=== PATIENT | male | born 1990 | race African-American/Black ===

== ENCOUNTER → 2021-05-30 08:23 | Outpatient (BNVA) | payer MEDICARE, MEDICAID, SELFPAY | PROVIDERS: PCP Nurse Practitioner Family; Visit Provider Urology | DX: N41.9 Inflammatory disease of prostate, unspecified (principal); R10.31 Right lower quadrant pain; R10.32 Left lower quadrant pain | CPT/HCPCS: 99202 ==

== ENCOUNTER → 2021-09-10 08:32 | Outpatient (BNVA) | payer MEDICARE, MEDICAID, SELFPAY | PROVIDERS: PCP Nurse Practitioner Family; Visit Provider Urology | DX: N41.9 Inflammatory disease of prostate, unspecified (principal); M62.89 Other specified disorders of muscle | CPT/HCPCS: 99212 ==

== ENCOUNTER → 2022-03-17 15:02 | Outpatient (BNVA) | payer MEDICARE, MEDICAID, SELFPAY | PROVIDERS: PCP Nurse Practitioner Family; Visit Provider Urology | DX: N41.9 Inflammatory disease of prostate, unspecified (principal); M62.89 Other specified disorders of muscle | CPT/HCPCS: Q3014 ==

== ENCOUNTER 2022-06-25 11:00 | Outpatient (RCR) | payer MEDICARE, MEDICAID, SELFPAY ==
--- NOTE | 2022-04-23 13:43 | MHC.PT.EP ---
[facility] [place] [facility] [place] [facility] [place] [facility] [address] Roxana Cosme [address] [phone] F: [phone] F: [phone] F: [phone] F: [phone] Physical Therapy Plan of Care Date of Evaluation: Date of Surgery: NA Diagnosis: Inflammatory disease of prostate Assessment: Brodie is a 31 year old male who is referred to PT for inflammatory disease of prostate . He reports of having symptoms pressure and pain in his penis, testicles, groin, urinary urgency, frequency and pain after BM. He started noticing his symptoms about 6-7 years back after a period of being hyper-sexual due to mental health issues. He denies having any pain with erection and ejaculation. In addition he also reports of having slow urine stream. Internal pelvic exam not done today as pt was not prepared for it. On PT examination he presented with intact lumbar ROM and B LE ROM however demonstrated decreased symptoms with lumbar flexion. He would benefit from skilled PT to address the aforementioned impairments and improve tolerance to functional activities. Frequency and Duration: The patient will be seen 1/week for 7 weeks. Short Term Goals: 1. Internal pelvic exam will be done in 2 weeks. 2. Pt will be able to state at least 3 urge suppression techniques 3. Pt will drop his night urination from 3 to 1 and day from 15 to 10 in 4 weeks. Transitional Living Specialist Goals: 1. Pt will present with 50% decrease in pain groin, penis and testicles which will enable him to sit for 30 minutes without pain in 5 weeks. 2. Pt will be independent with [facility] for symptom management and maintenance following d/c in 7 weeks. Treatment Plan: Modalities to reduce pain, spasms and effusion. Manual therapy to restore motion and function. Therapeutic exercise to improve strength and flexibility. Neuromuscular re-education for posture and balance. Therapeutic activities to return to functional activities of daily living. Electronically signed by: Please sign and return to therapist. Thank you for your referral.
--- NOTE | 2022-06-25 11:48 | MHC.PT.DC ---
[facility] [place] [facility] [place] [facility] [place] [facility] [address] Roxana Cosme [address] [phone] F: [phone] F: [phone] F: [phone] F: [phone] Physical Therapy Discharge Report Diagnosis: Inflammatory disease of prostate Date of Surgery: NA Date of Evaluation: 04/23/22 Date of Discharge: 06/25/22 Treatments to Date: 6 Cancellations to Date: 0 No Shows to Date: Discharge Status: Patient Elected to Stop Recommend MD Follow-up Discharge Summary: Brodie arrived for his last visit stating he has been working on his lumbar stabs and stretches and none of this has helped him manage his groin and buttock pressure and pain. He has completed 6 PT visits and in all these visits I have not been able to reproduce the pressure and discomfort feeling in his groin and buttocks. His discomfort is present at rest and gets better with movements. Per pt none of the stretches, internal soft tissue release and strengthening exercises have helped him with his symptoms. He stated that I do not like coming to this hospital. I know this is not going to help and coming here is depressing . rBodie's bladder symptoms- urgency and frequency are better and denies having any bowel or bladder issues. He also denies having any ano-rectal pain (presented with TTP internally however after the first few visits he did not want any ano-rectal treatment for trigger points). Brodie only wants to address his groin and buttock discomfort and per Brodie none of the PT techniques have helped him. He was therefore d/c from PT today. Brodie was in agreement with this plan. Electronically signed by: Cathryn Finley, PT DPT Please sign and return to therapist. Thank you for your referral.
== END 2022-06-25 11:49 | disposition home or self-care (01) ==
LOC: HO.PT 11:00
PROVIDERS: Visit Provider Urology
DX: M62.89 Other specified disorders of muscle (principal); N41.9 Inflammatory disease of prostate, unspecified
CPT/HCPCS: 97110; 97112; 97140; 97162

== ENCOUNTER 2023-10-04 11:32 | Outpatient (AMB) | payer MEDICARE, MEDICAID, SELFPAY ==
--- NOTE | 2023-10-04 11:33 | MHC.OFFVIS ---
Vital Signs 10/04/23 11:42 Height 5 ft 7 in Weight 146 lb 4 oz BMI 22.9 BP 110/70 Blood Pressure Location Lt brachial Position Sitting Respiration 16 Pulse 61 Pulse Source Pulse Oximeter Pulse Oximetry (%) 100 Oxygen Delivery Method Room Air Intake Visit Reasons: Chronic pelvic pain Intake Note: Patient comes in for initial visit was referred by [facility] primary care. Reports pain 12/22. Allergies No Known Allergies Allergy (Verified 03/17/22 15:05) HPI Comments Details: Brodie is very pleasant 33 years old gentleman who presents in my office with complains on chronic pelvic pain. He complains on pain in the most lower portion of his groins with radiation into the bilateral testicles as well as pain in the pelvic floor and most lower back pain. He also complains on sensation on tiredness and tension in the pelvis as well as in his lower back. He reports pain today 10. He admits pain increase with sneezing and coughing. He admits pain increase after defecation but not during the defecation. He reports that he is suffering from this pain for 16 years. He is under care of urologist with chronic pelvic pain and he does not get any improvement from urological treatment. He can sleep normally he can do activities of daily living he can take care of himself but he can not function normally. In terms of tissue damage he reports his pain is throbbing, jumping, shooting, stabbing, sharp, hot burning, tingling, stinging, dull, hurting, aching, sickening, punishing, spreading, radiating, tight sensation. He had multiple images CT scans of the abdomen and pelvis with and without contrast. No pathology was found to be demonstrated. He never had an MRI of the lumbar spine. He had extensive physical therapy for pelvic floor relaxation several times and received no improvement. He even tried chiropractic manipulations which gave him no improvement. He never tried any injections in the past. His past medical history significant for cluster B personality disorder/schizoaffective disorder. He never tried gabapentin or Lyrica to treat his pain. He tried baclofen which caused sensation of jittering and difficulty breathing. He never tried tizanidine. However patient today stated that he overcame those conditions and he psychological very stable at this time. His past medical history significant for kidney stones. Past surgical history for kidney stones removal. He denies smoking nicotine/cigarettes he denies drinking alcohol he denies drinking caffeinated beverages he denies soda he smokes cannabis on regular basis 2 to 3 times a day. [facility] Medical History (Updated 10/04/23 @ 12:51 by Андрей Dozier MD) Schizoaffective disorder Mood disorder Social History (Updated 10/04/23 @ 11:51 by Nancie Garg) Substance Use Type: Marijuana Review of Systems Const All systems reviewed & are unremarkable except as noted in HPI and below Reports no additional complaints Resp Reports no additional complaints GI Reports no additional complaints Reports as per HPI Musc Reports no additional complaints Physical Exam Vital Signs: Last Vital Signs Pulse 61 10/04/23 11:42 Resp 16 10/04/23 11:42 BP 110/70 10/04/23 11:42 Pulse Ox 100 10/04/23 11:42 Oxygen Delivery Method Room Air 10/04/23 11:42 BMI result Body Mass Index 22.9 Const General: cooperative, healthy appearing, comfortable and no acute distress Orientation/consciousness: patient oriented x3 HEENT Face and sinus: Yes normal facial exam Mouth: moist mucous membranes Neck Neck: Yes normal visual inspection, Yes full ROM and Yes trachea midline Chest Chest palpation & inspection: normal inspection of the chest Resp Effort & Inspection: normal respiratory effort, able to speak in complete sentences and no respiratory distress GI Inspection: Yes normal to inspection Back/Spine/Pelvis Cervical Spine: normal cervical lordosis Thoracic/Lumbar Spine: thoracic and lumbar spine normal to inspection Skin General skin exam: no rashes or lesions noted Neuro General: patient oriented x3, gait normal, tone normal and moves all extremities Extrem General: Yes normal to inspection and Yes capillary refill normal Results Reviewed Results Reviewed: According to the referral note CT of the abdomen and pelvis on 06/01/23 is unremarkable. Assessment & Plan Assessment & Plan (1) Chronic pelvic pain in male: Code(s): R10.2 - Pelvic and perineal pain; G89.29 - Other chronic pain Category: Medical (2) Chronic pain syndrome: Code(s): G89.4 - Chronic pain syndrome Category: Medical (3) Sympathetic pain: Code(s): M79.2 - Neuralgia and neuritis, unspecified Category: Medical (4) Spinal stenosis, lumbar: Code(s): M48.061 - Spinal stenosis, lumbar region without neurogenic claudication Category: Medical Plan To rule out this patient's pain source from the lumbar spine I will send him for the MRI of the lumbar spine. I need to alleviate red flags chronic cauda equina compressions, chronic cauda equina syndrome, patient's report urinary frequency and incontinence it could be symptoms of spinal canal stenosis. Presumably this pain of the patient is sympathetically maintained I will schedule him for superior hypo gastric plexus block in combination with ganglion impar block to diagnose and potentially alleviate pain of this patient. Also I would like to consider neuromodulation to treat his pain. I gave him brochures on [employer] and [employer] to read and with proper arrangement take it into consideration if the sympathetic block will not alleviate his pain. We will try tizanidine to begin with to treat his pain syndrome , part of with sensation of tightness in the pelvis area and muscle relaxants tizanidine maybe helpful for control of his pain. Proper explanations about tizanidine side effects were given to the patient. Considering that his pain might be neurogenic in nature will try gabapentin on this patient in 2 weeks from now. I will schedule appointment with this patient in 2 weeks. Orders: Orders MR lumbar spine wo con Today M48.061 - Spinal stenosis, lumbar region without neurogenic claudication Medications: New tizanidine patient may take 1 and 1/2 or even 2 pills at night if feeling drowsy or sleepy with those pills. 2 mg PO TID 30 days 90 tabs 0RF Patient Instructions: I here by testify that I spent 48 minutes in conversation with this patient, evaluating his prior records, planning his care, making appropriate orders, and organizing this note. Coding Level of Care Code New Pt Level 4 (20363) Diagnoses Chronic pelvic pain in male R10.2; G89.29 Chronic pain syndrome G89.4 Sympathetic pain M79.2 Spinal stenosis, lumbar M48.061
[2023-10-04 11:42] VITALS: BP 110/70; PULSE 61; RESP 16; O2SAT 100; BMI 22.9
== END 2023-10-04 12:34 | disposition home or self-care (01) ==
PROVIDERS: PCP Physician Assistant; Visit Provider Anesthesiology
DX: R10.2 Pelvic and perineal pain (principal); G89.29 Other chronic pain; G89.4 Chronic pain syndrome; M79.2 Neuralgia and neuritis, unspecified; M48.061 Spinal stenosis, lumbar region without neurogenic claudication
CPT/HCPCS: 99204

== ENCOUNTER → 2023-10-04 11:32 | Outpatient (BNVA) | payer MEDICARE, MEDICAID, SELFPAY | PROVIDERS: Visit Provider Anesthesiology | DX: R10.2 Pelvic and perineal pain (principal); M79.2 Neuralgia and neuritis, unspecified; M48.061 Spinal stenosis, lumbar region without neurogenic claudication; G89.4 Chronic pain syndrome | CPT/HCPCS: 99202 ==

== ENCOUNTER 2025-01-16 11:00 | Outpatient (RCR) | payer MEDICARE, MEDICAID, SELFPAY | END 2025-02-13 13:53 | disposition home or self-care (01) | LOC: HO.PT 11:00 | PROVIDERS: PCP Physician Assistant; Visit Provider Physician Assistant | DX: M62.89 Other specified disorders of muscle (principal) | CPT/HCPCS: 97110; 97112; 97140; 97162 ==